=== PATIENT | male | born 1985 | race African-American/Black ===

== ENCOUNTER 2018-07-14 18:04 | Emergency (ER) | payer BC ==
[~2018-07-14] VITALS: Ht 167.6 cm; Wt 90.7 kg
[2018-07-14] MEDS ORDERED: NAPROXEN250 MG PO (18:55)
[2018-07-14] MEDS ORDERED: KEFLEX500 MG PO (18:55)
[2018-07-14] MEDS ORDERED: TETANUS/DIPHTHERIA TOX ADULT 0.5 ML SYR IM ONE (19:00)
[2018-07-14] MEDS ORDERED: CEFAZOLIN SOD 500 MG VIAL IM SCH (19:00)
[2018-07-14] MEDS ORDERED: TETANUS/DIPHTHERIA TOX ADULT 0.5 ML SYR ONE (19:07)
[2018-07-14] MEDS ORDERED: LIDOCAINE HCL 2% LOCAL 20 ML VIAL ONE (19:07)
[2018-07-14] MEDS ORDERED: LIDOCAINE HCL 1% 2 ML AMP INJ ONE (19:15)
--- NOTE | 2018-07-14 19:29 | NUR ---
REPORT TO ANGEL KELLER
--- NOTE | 2018-07-14 19:40 | Diagnostic Imaging Report ---
HAND 3 VIEW LT - HOPD - 3 views HISTORY: Pain COMPARISON: None available. FINDINGS: Bones: No acute displaced fracture. Osseous alignment is within normal limits. Joints: The joint spaces are well-maintained. Soft tissues: Second third digit soft tissue swelling and mild emphysema. Punctate density at the base of the second digit, seen only on lateral view, could represent a foreign body or be external to patient. IMPRESSION: No acute fracture or dislocation of the left hand. Soft tissue changes as above. Signed by: Dr. Anjel Antoine MD on 07/14/2018 7:36 PM
== END 2018-07-14 19:47 | disposition home or self-care (01) ==
LOC: FSED 18:04
DX: S61.211A Laceration without foreign body of left index finger without damage to nail, initial encounter (principal); S61.213A Laceration without foreign body of left middle finger without damage to nail, initial encounter; W26.0XXA Contact with knife, initial encounter; Y92.008 Other place in unspecified non-institutional (private) residence as the place of occurrence of the external cause
CPT/HCPCS: 12002; 73130; 90471; 90714; 99283; J2001 ×2